=== PATIENT | female | born 1995 | race Two or more races ===

== ENCOUNTER 2018-08-08 14:02 | Emergency (ER) | payer SELFPAY ==
[~2018-08-08] VITALS: Ht 157.5 cm; Wt 72.6 kg
[2018-08-08 15:01] LABS: Basophils # (auto) 0 uL; Hematocrit 23.9 % (36.0-46.0); Hemoglobin 7.4 g/dL (12.2-16.2); Mean Corpuscular Hgb Conc. 31.1 g/dL (32.0-36.0); Monocytes # (auto) 0.6 uL; Neutrophils # (auto) 5.1 uL; Nucleated Red Blood Cells % 0.1 %; White Blood Cell 7.9 10^3/uL (4.4-10.8)
[2018-08-08 15:03] LABS: Basophils % (auto) 0.6 % (0.0-2.0); Eosinophils # (auto) 0.1 uL; Eosinophils % (auto) 0.6 % (0.0-7.0); Lymphocytes # (auto) 2.2 uL; Lymphocytes % (auto) 27.2 % (10.0-50.0); Mean Corpuscular Hemoglobin 23.7 pg (28.0-32.0); Mean Corpuscular Volume 76.2 fL (80.0-100.0); Monocytes % (auto) 7.9 % (0.0-12.0); Neutrophils % (auto) 63.7 % (37.0-80.0); Platelet Count (auto) 655 10^3/uL (140-450); Red Blood Cells 3.13 10^6/uL (4.0-5.20); Red Cell Distribution Width 17.6 % (11.8-14.3)
[2018-08-08 15:13] LABS: Urine Bacteria NONE SEEN /hpf (None Seen); Urine Blood Negative /uL (Negative); Urine Mucus FEW (None Seen); Urine Specific Gravity 1.008 (1.001-1.035); Urine WBC <1 /hpf (0 - 5)
[2018-08-08 15:14] LABS: Potassium 3.8 mmol/L (3.5-5.1)
[2018-08-08] MEDS ORDERED: FERROUS SULFATE 325 MG TAB PO ONE (15:45)
[2018-08-08 16:07] LABS: BUN/Creatinine Ratio 14.3; Bilirubin, Total 0.5 mg/dL (0.2-1.0); Calcium 8.7 mg/dL (8.5-10.1); Total Protein 8.5 g/dL (6.4-8.2)
[2018-08-08 16:30] VITALS: BP 125/61
== END 2018-08-08 18:17 | disposition home or self-care (01) ==
LOC: ER 14:02
DX: K64.9 Unspecified hemorrhoids (principal); D64.9 Anemia, unspecified; Z32.02 Encounter for pregnancy test, result negative
CPT/HCPCS: 36415; 80053; 81001; 81025; 85025

== ENCOUNTER 2020-01-06 11:09 | Emergency (ER) | payer MEDICAID ==
[~2020-01-06] VITALS: Ht 157.5 cm; Wt 72.6 kg
[2020-01-06 11:15] VITALS: BP 113/69
== END 2020-01-06 14:51 | disposition home or self-care (01) ==
LOC: ER 11:09
DX: J30.89 Other allergic rhinitis (principal); J02.9 Acute pharyngitis, unspecified; R06.02 Shortness of breath
CPT/HCPCS: 71046

== ENCOUNTER 2021-03-22 10:38 | Emergency (ER) | payer MEDICAID ==
[~2021-03-22] VITALS: Ht 157.5 cm; Wt 68.9 kg
[2021-03-22 12:38] LABS: Basophils # (auto) 0 10 ^3/uL (0-0.2); Basophils % (auto) 0.2 % (0.0-2.0); Eosinophils # (auto) 0.4 10 ^3/uL (0-0.8); Eosinophils % (auto) 4.6 % (0.0-7.0); Hematocrit 38.2 % (36.0-46.0); Hemoglobin 13.6 g/dL (12.2-16.2); Lymphocytes # (auto) 2.4 10 ^3/uL (0.4-5.4); Mean Corpuscular Hgb Conc. 35.7 g/dL (32.0-36.0); Mean Corpuscular Volume 89.7 fL (80.0-100.0); Monocytes # (auto) 0.8 10 ^3/uL (0-1.3); Neutrophils # (auto) 6.1 10 ^3/uL (1.6-8.6); Neutrophils % (auto) 62.2 % (37.0-80.0); Red Blood Cells 4.26 10^6/uL (4.0-5.20); Red Cell Distribution Width 12.9 % (11.8-14.3); White Blood Cell 9.8 10^3/uL (4.4-10.8)
[2021-03-22 13:08] VITALS: BP 113/73
[2021-03-22 13:21] LABS: Urine Bacteria NONE SEEN /hpf (None Seen); Urine Blood Negative /uL (Negative); Urine Mucus FEW (None Seen); Urine Specific Gravity 1.011 (1.001-1.035); Urine WBC 1 /hpf (0 - 5)
== END 2021-03-22 14:50 | disposition home or self-care (01) ==
LOC: ER 10:38
DX: O26.891 Other specified pregnancy related conditions, first trimester (principal); R10.2 Pelvic and perineal pain; Z3A.00 Weeks of gestation of pregnancy not specified
CPT/HCPCS: 36415; 76801; 76817; 81001; 84702; 85025; 85049

== ENCOUNTER 2021-08-30 08:40 | Observation (INO) | payer MEDICAID ==
[~2021-08-30] VITALS: Ht 157.5 cm; Wt 72.6 kg
[2021-08-30] MEDS ORDERED: ceFAZolin 1GM/50ML 50 ML IV ONE (10:00)
[2021-08-30] MEDS ORDERED: LACTATED RINGER'S 1,000 ML IV ONE (10:00)
[2021-08-30 10:05] LABS: Urine Bacteria NONE SEEN /hpf (None Seen); Urine Blood 3+ /uL (Negative); Urine Mucus FEW (None Seen); Urine Specific Gravity 1.014 (1.001-1.035); Urine WBC 48 /hpf (0 - 5)
[2021-08-30] MEDS: TERBUTALINE SULFATE 1 MG/ML 1ML VIAL SC SCH ×3 (12:10→13:45)
[2021-08-30] MEDS ORDERED: PREN1TAB71 OR (14:34)
[2021-08-30] MEDS ORDERED: NITR-87 PO (14:35)
== END 2021-08-30 14:49 | disposition home or self-care (01) ==
LOC: LDRP 08:40
PROVIDERS: ADMIT Obstetrics & Gynecology; ATTEND Obstetrics & Gynecology
DX: O21.2 Late vomiting of pregnancy (principal); O99.283 Endocrine, nutritional and metabolic diseases complicating pregnancy, third trimester; E86.0 Dehydration; O23.43 Unspecified infection of urinary tract in pregnancy, third trimester; O62.9 Abnormality of forces of labor, unspecified; O34.63 Maternal care for abnormality of vagina, third trimester; N89.8 Other specified noninflammatory disorders of vagina; Z3A.28 28 weeks gestation of pregnancy; Z87.442 Personal history of urinary calculi
CPT/HCPCS: 59025; 81001; 81002; 94760; 96361; 96365; 96372; G0378; G0379; J0690; J3105; 96360